=== PATIENT | male | born 1985 | race Caucasian/White ===

== ENCOUNTER → 2020-08-26 13:45 | Outpatient (BNVA) | payer OTHER, SELFPAY | PROVIDERS: PCP Internal Medicine; Referring Provider Internal Medicine; Visit Provider Internal Medicine Endocrinology, Diabetes & Metabolism | DX: E11.65 Type 2 diabetes mellitus with hyperglycemia (principal); E11.21 Type 2 diabetes mellitus with diabetic nephropathy; E78.1 Pure hyperglyceridemia; E66.9 Obesity, unspecified; E55.9 Vitamin D deficiency, unspecified | CPT/HCPCS: 82947; 99212 ==

== ENCOUNTER → 2021-03-09 08:44 | Outpatient (BNVA) | payer SELFPAY | PROVIDERS: PCP Internal Medicine; Visit Provider Physician Assistant | DX: Z02.79 Encounter for issue of other medical certificate (principal) ==

== ENCOUNTER 2021-09-12 11:54 | Emergency (ER) | payer OTHER, SELFPAY ==
--- NOTE | 2021-09-12 13:30 | ED_ITS ---
HPI - General Adult General Chief complaint: Urogenital-Male Stated complaint: pain upon urination Time Seen by Provider: 09/12/21 12:55 History of Present Illness HPI narrative: Patient with 2 complaints for several days he has had burning with urination and bumps on his genitals, he is sexually active, no fever no chills no vomiting no other complaint Related Data Home Medications Medication Instructions Recorded Confirmed blood sugar diagnostic #10 ea 08/26/20 08/26/20 lancets 28 gauge #100 ea 08/26/20 08/26/20 omega 4-rei-kjg-fish oil 1,000 mg 1 cap PO BID 08/26/20 08/26/20 (120 mg-180 mg) capsule Previous Rx's Medication Instructions Recorded blood-glucose meter (FreeStyle #1 ea 08/26/20 Lite Meter) pioglitazone 15 mg tablet 15 mg PO DAILY 30 Days #30 tab 08/25/21 cholecalciferol (vitamin D3) 25 25 mcg PO DAILY 90 Days #90 cap 09/03/21 mcg (1,000 unit) capsule fenofibrate 54 mg tablet 54 mg PO DAILY 90 Days #90 tab 09/03/21 metformin 1,000 mg tablet 1,000 mg PO BID 90 Days #180 tab 09/03/21 sulfamethoxazole 800 1 tab PO BID 5 Days #10 tab 09/12/21 mg-trimethoprim 160 mg tablet (Bactrim DS) valacyclovir 1 gram tablet 1,000 mg PO BID 10 Days #20 tab 09/12/21 (Valtrex) Allergies Allergy/AdvReac Type Severity Reaction Status Date / Time No Known Allergies Allergy Verified 09/12/21 13:35 Review of Systems Review of Systems: Positive for dysuria and genital lesions Negatives are no fever no chills no dizziness no weakness no headache no neck pain no chest pain no abdominal pain no nausea vomiting or diarrhea no testicular pain or swelling no other rash Yes all other systems are reviewed and are negative PMFSH Past Medical History Source: nursing notes reviewed Medical History (Updated 09/12/21 @ 17:56 by RAOUL Brush) Diabetes type 2, uncontrolled Diabetic nephropathy associated with type 2 diabetes mellitus Hypertriglyceridemia Obesity (BMI 30-39.9) Vitamin D deficiency Surgical History (Updated 08/26/20 @ 14:28 by BRENT Fairbanks) No pertinent past surgical history Family History Family History (Updated 08/26/20 @ 14:28 by BRENT Fairbanks) Father No problems noted. Mother No problems noted. Social History Social History (Updated 08/26/20 @ 14:27 by BRENT Fairbanks) Advance Directives: No Advance Directives Information Provided: No Physical Exam Vital Signs: Vital Signs: Last Vital Signs Temp 98 F 09/12/21 16:29 Pulse 90 09/12/21 16:29 Resp 16 09/12/21 16:29 BP 143/97 H 09/12/21 16:29 Pulse Ox 97 09/12/21 16:29 BMI result Body Mass Index 25.8 General appearance comfortable relax no acute distress Head is normocephalic atraumatic The pharynx is clear with no sores The neck is supple Respiratory no distress Abdomen soft nontender Genital exam there are vesicular lesions consistent with herpes on penis there is no testicular swelling no palpable lymph nodes no obvious discharge Extremities full range of motion x4 Skin no other rash Course Course Course Narrative: Patient's urine came back showing some white cells as well as high glucose and ketones Point of care was done and it was 255 The patient was hydrated and labs were sent there was no anion gap and acetone in the blood was negative, patient remains comfortable and tolerating p.o. t hroughout He says his sugars always around 200 despite taking his metformin so he is advised to follow with primary care doctor and copy holder for dosage adjustment and further evaluation The genital lesions that were consistent with herpes were treated with Valtrex As he is sexually active with this dysuria he was given Rocephin and Zithromax as well as tested for GC and chlamydia His urine did come back with white cells although nitrite negative and no bacteria so he was treated with Bactrim for 5 days for possible UTI , urine culture is pending Throughout ER visit he remains comfortable well-appearing and tolerating p.o. and was discharged to follow with primary doctor Medical Decision Making Lab Data Result diagrams: 09/12/21 16:24 09/12/21 16:24 Labs: Lab Results 09/12/21 09/12/21 09/12/21 Range/Units 15:22 15:23 15:51 WBC (4.8-10.8) X10*3/uL RBC (4.60-5.80) X10*6/uL Hgb (14.0-18.0) g/dl Hct (42.0-52.0) % MCV (80.0-98.0) fL MCH (27.0-33.0) pg MCHC (31.0-36.0) g/dl RDW (11.0-16.0) % Plt Count (160-400) X10*3/uL MPV (9.4-12.4) fL Immature Gran % (Auto) (0.0-0.4) % Neut % (Auto) (45-73) % Lymph % (Auto) (20-40) % [place] % (Auto) (2-11) % Eos % (Auto) (0-4) % Baso % (Auto) (0-2) % Lymph # (Auto) (1.2-4.9) X10*3/uL [place] # (Auto) (0.1-1.2) X10*3/uL Eos # (Auto) (0.0-0.4) X10*3/uL Baso # (Auto) (0.0-0.2) X10*3/uL Abs Immat Gran (auto) (0.00-0.03) X10*3/uL Absolute Neuts (auto) (2.0-8.3) x10*3/uL Absolute Nucleated RBC (0.0-0.012) X10*3/uL Nucleated RBC % (auto) (0.0-0.2) /100WBC Sodium (135-145) mmol/L Potassium (3.3-5.1) mmol/L Chloride (96-108) mmol/L Carbon Dioxide (22-29) mmol/L Anion Gap (12-20) BUN (9-16) mg/dL Creatinine (0.5-1.4) mg/dL Estim Creat Clear Calc Estimated GFR POC Glucose (60-115) mg/dL Random Glucose (60-115) mg/dL Calcium (8.4-10.2) mg/dL Urine Color YELLOW Urine Appearance HAZY Urine pH 6.0 (5.0-8.0) Ur Specific [place] >= 1.030 H (1.005-1.025) Urine Protein 2+ H (NEG-TRACE) MG/DL Urine Glucose (UA) >=1000 H (NEG) MG/DL Urine Ketones >=80 (NEG) MG/DL Urine Blood 1+ H (NEG) Urine Nitrite NEG (NEG) Ur Leukocyte Esterase NEG (NEG) Urine RBC 10-14 H (0) /HPF Urine WBC 30-49 H (0-4) /HPF Ur Squamous Epith Cells TRACE /LPF Urine Bacteria NONE /LPF Acetone, Qual (Negative) Chlam trachomat DNA PCR NOT DETECTED (Not Detect.) COVID-19 (CARTER) Negative (Negative) COVID-19 Clin Com See Note N.gonorrhoeae DNA (PCR) NOT DETECTED (Not Detect.) 09/12/21 09/12/21 09/12/21 Range/Units 16:06 16:24 16:24 WBC 4.4 L (4.8-10.8) X10*3/uL RBC 5.64 (4.60-5.80) X10*6/uL Hgb 16.5 (14.0-18.0) g/dl Hct 48.0 (42.0-52.0) % MCV 85.1 (80.0-98.0) fL MCH 29.3 (27.0-33.0) pg MCHC 34.4 (31.0-36.0) g/dl RDW 12.5 (11.0-16.0) % Plt Count 157 L (160-400) X10*3/uL MPV 10.6 (9.4-12.4) fL Immature Gran % (Auto) 0.9 H (0.0-0.4) % Neut % (Auto) 68.8 (45-73) % Lymph % (Auto) 17.2 L (20-40) % [place] % (Auto) 12.1 H (2-11) % Eos % (Auto) 0.5 (0-4) % Baso % (Auto) 0.5 (0-2) % Lymph # (Auto) 0.8 L (1.2-4.9) X10*3/uL [place] # (Auto) 0.5 (0.1-1.2) X10*3/uL Eos # (Auto) 0.0 (0.0-0.4) X10*3/uL Baso # (Auto) 0.0 (0.0-0.2) X10*3/uL Abs Immat Gran (auto) 0.04 H (0.00-0.03) X10*3/uL Absolute Neuts (auto) 3.0 (2.0-8.3) x10*3/uL Absolute Nucleated RBC 0.000 (0.0-0.012) X10*3/uL Nucleated RBC % (auto) 0.0 (0.0-0.2) /100WBC Sodium 133 L (135-145) mmol/L Potassium 4.0 (3.3-5.1) mmol/L Chloride 96 (96-108) mmol/L Carbon Dioxide 28 (22-29) mmol/L Anion Gap 13 (12-20) BUN 10 (9-16) mg/dL Creatinine 1.02 (0.5-1.4) mg/dL Estim Creat Clear Calc 105.3 Estimated GFR > 60 POC Glucose 255 H (60-115) mg/dL Random Glucose 258 H (60-115) mg/dL Calcium 9.5 (8.4-10.2) mg/dL Urine Color Urine Appearance Urine pH (5.0-8.0) Ur Specific [place] (1.005-1.025) Urine Protein (NEG-TRACE) MG/DL Urine Glucose (UA) (NEG) MG/DL Urine Ketones (NEG) MG/DL Urine Blood (NEG) Urine Nitrite (NEG) Ur Leukocyte Esterase (NEG) Urine RBC (0) /HPF Urine WBC (0-4) /HPF Ur Squamous Epith Cells /LPF Urine Bacteria /LPF Acetone, Qual (Negative) Chlam trachomat DNA PCR (Not Detect.) COVID-19 (CARTER) (Negative) COVID-19 Clin Com N.gonorrhoeae DNA (PCR) (Not Detect.) 09/12/21 Range/Units 16:24 WBC (4.8-10.8) X10*3/uL RBC (4.60-5.80) X10*6/uL Hgb (14.0-18.0) g/dl Hct (42.0-52.0) % MCV (80.0-98.0) fL MCH (27.0-33.0) pg MCHC (31.0-36.0) g/dl RDW (11.0-16.0) % Plt Count (160-400) X10*3/uL MPV (9.4-12.4) fL Immature Gran % (Auto) (0.0-0.4) % Neut % (Auto) (45-73) % Lymph % (Auto) (20-40) % [place] % (Auto) (2-11) % Eos % (Auto) (0-4) % Baso % (Auto) (0-2) % Lymph # (Auto) (1.2-4.9) X10*3/uL [place] # (Auto) (0.1-1.2) X10*3/uL Eos # (Auto) (0.0-0.4) X10*3/uL Baso # (Auto) (0.0-0.2) X10*3/uL Abs Immat Gran (auto) (0.00-0.03) X10*3/uL Absolute Neuts (auto) (2.0-8.3) x10*3/uL Absolute Nucleated RBC (0.0-0.012) X10*3/uL Nucleated RBC % (auto) (0.0-0.2) /100WBC Sodium (135-145) mmol/L Potassium (3.3-5.1) mmol/L Chloride (96-108) mmol/L Carbon Dioxide (22-29) mmol/L Anion Gap (12-20) BUN (9-16) mg/dL Creatinine (0.5-1.4) mg/dL Estim Creat Clear Calc Estimated GFR POC Glucose (60-115) mg/dL Random Glucose (60-115) mg/dL Calcium (8.4-10.2) mg/dL Urine Color Urine Appearance Urine pH (5.0-8.0) Ur Specific [place] (1.005-1.025) Urine Protein (NEG-TRACE) MG/DL Urine Glucose (UA) (NEG) MG/DL Urine Ketones (NEG) MG/DL Urine Blood (NEG) Urine Nitrite (NEG) Ur Leukocyte Esterase (NEG) Urine RBC (0) /HPF Urine WBC (0-4) /HPF Ur Squamous Epith Cells /LPF Urine Bacteria /LPF Acetone, Qual Negative (Negative) Chlam trachomat DNA PCR (Not Detect.) COVID-19 (CARTER) (Negative) COVID-19 Clin Com N.gonorrhoeae DNA (PCR) (Not Detect.) Discharge Plan Discharge Clinical Impression: Hyperglycemia, Genital herpes, UTI (urinary tract infection) Patient Disposition: Home, Self-Care Additional Instructions: Your sugar was elevated so follow with your doctor to make sure your medicines are adjusted as best possible to control your sugar Our testing showed a possible urinary tract infection so we are treating with Bactrim antibiotic We are testing for possible sexually transmitted disease which can also cause d iscomfort with urination For the genital sores we are treating with Valtrex for possible genital herpes We also treated with Rocephin and Zithromax for possible gonorrhea or chlamydia We will call you with results of testing Follow with your doctor Return any time any worse condition or any concerns Prescriptions: New sulfamethoxazole-trimethoprim [Bactrim DS] 800-160 mg tablet 1 tab PO BID 5 Days Qty: 10 RF: 0 valacyclovir [Valtrex] 1 gram tablet 1,000 mg PO BID 10 Days Qty: 20 RF: 0 No Action pioglitazone 15 mg tablet 15 mg PO DAILY 30 Days Qty: 30 RF: 6 cholecalciferol (vitamin D3) 25 mcg (1,000 unit) capsule 25 mcg PO DAILY 90 Days Qty: 90 RF: 1 fenofibrate 54 mg tablet 54 mg PO DAILY 90 Days Qty: 90 RF: 0 metformin 1,000 mg tablet 1,000 mg PO BID 90 Days Qty: 180 RF: 0 omega 8-yqq-lpt-fish oil 1,000 mg (120 mg-180 mg) capsule 1 cap PO BID RF: 0 (DME) lancets 28 gauge misc See Rx Instructions ea topical DAILY Qty: 100 RF: 0 (DME) FreeStyle Lite Strips Strip See Rx Instructions ea Not Applicable DAILY Qty: 10 RF: 0 (DME) blood-glucose meter [FreeStyle Lite Meter] Kit See Rx Instructions .ROUTE .MEDSUPPLY Qty: 1 RF: 0 Stand Alone Forms: Work/School Release
[2021-09-12 14:56] VITALS: BP 134/74; PULSE 88; RESP 16; TEMP 36.6; O2SAT 97; BMI 25.8
[2021-09-12] MEDS: Azithromycin 500 MG TABLET 1000 MG PO (15:09)
[2021-09-12] MEDS: cefTRIAXone sodium 250 MG, Lidocaine HCl 1 % MPF 0.9 ML IM (15:10)
[2021-09-12 15:37] LABS: Appearance Urine HAZY; Color Urine YELLOW; Glucose Urine UA >=1000 MG/DL (NEG); Leukocyte Esterase Urine NEG (NEG); Nitrite Urine NEG (NEG); Specific Gravity - Urine >= 1.030 (1.005-1.025); UACC Culture Trigger NO; Urine Blood 1+ (NEG); Urine Ketones >=80 MG/DL (NEG); Urine Protein 2+ MG/DL (NEG-TRACE)
[2021-09-12 15:58] LABS: Squamous Epithelial Cell Urine TRACE /LPF; UACC CULT YES; WBC Urine 30-49 /HPF (0-4)
[2021-09-12 16:11] LABS: Glucose, Whole Blood 255 mg/dL (60-115)
[2021-09-12 16:12] LABS: COVID-19 Test Negative (Negative)
[2021-09-12] MEDS: 0.9 % Sodium Chloride 1,000 ML 999 ML IVCONT (16:28)
[2021-09-12 16:29] VITALS: BP 143/97; PULSE 90; RESP 16; TEMP 36.6; O2SAT 97
--- NOTE | 2021-09-12 16:30 | PC.NURSE ---
Pt resting upright in bed, rr even unlabored, skin wpd, aox3. Pt offers no acute complaints, presents to ed for c/o dysuria w/ lesions on genitals. Pt medicated per emar for complaints. Pt known diabetic, sts he has been eating poorly over the holidays, poc 255, iv established, labs drawn, ns infusing per emar. Pt aware and agreeable to plan of care.
[2021-09-12 16:33] LABS: MANUAL DIFF FLAG NO
[2021-09-12 16:35] LABS: Basophils Percent Auto 0.5 % (0-2); Eosinophils Percent Auto 0.5 % (0-4); Hemoglobin 16.5 g/dl (14.0-18.0); Imm Gran Abs Auto 0.04 X10*3/uL (0.00-0.03); Imm Gran Pct Auto 0.9 % (0.0-0.4); Lymphocytes Absolute Auto 0.8 X10*3/uL (1.2-4.9); Lymphocytes Percent Auto 17.2 % (20-40); Mean Corpuscular HGB Conc 34.4 g/dl (31.0-36.0); Mean Corpuscular Hemoglobin 29.3 pg (27.0-33.0); Mean Corpuscular Volume 85.1 fL (80.0-98.0); Mean Platelet Volume 10.6 fL (9.4-12.4); Monocytes Absolute Auto 0.5 X10*3/uL (0.1-1.2); Monocytes Percent Auto 12.1 % (2-11); Neutrophils Percent Auto 68.8 % (45-73); Platelet Count 157 X10*3/uL (160-400); Red Blood Count 5.64 X10*6/uL (4.60-5.80); Red Cell Distribution Width 12.5 % (11.0-16.0); White Blood Count 4.4 X10*3/uL (4.8-10.8)
[2021-09-12 16:44] LABS: Acetone, serum QL Negative (Negative)
[2021-09-12 16:48] LABS: Anion Gap 13 (12-20); Blood Urea Nitrogen 10 mg/dL (9-16); Calcium 9.5 mg/dL (8.4-10.2); Carbon Dioxide 28 mmol/L (22-29); Chloride 96 mmol/L (96-108); Creatinine Clr Calc Pharmacy 105.3; Estimated Glomerular Filt Rate > 60; Glucose Random 258 mg/dL (60-115); Sodium 133 mmol/L (135-145)
[2021-09-12 18:07] LABS: CT PCR NOT DETECTED (Not Detect.); NG PCR NOT DETECTED (Not Detect.)
== END 2021-09-12 18:11 | disposition home or self-care (01) ==
PROVIDERS: Physician Assistant Medical; Emergency Provider Emergency Medicine; PCP Internal Medicine
DX: N39.0 Urinary tract infection, site not specified (principal); A60.00 Herpesviral infection of urogenital system, unspecified; E11.65 Type 2 diabetes mellitus with hyperglycemia; R30.0 Dysuria; Z20.822 Contact with and (suspected) exposure to COVID-19; Z79.899 Other long term (current) drug therapy
CPT/HCPCS: 36415; 80048; 81001; 82009; 82947; 85025; 87086; 87255; 87491; 87591; 87635; 96360; 96372; 99283; 99284; J0696

== ENCOUNTER 2022-05-14 08:13 | Outpatient (REF) | payer OTHER, SELFPAY ==
[2022-05-14 08:37] LABS: MANUAL DIFF FLAG NO
[2022-05-14 08:42] LABS: Basophils Percent Auto 0.5 % (0-2); Eosinophils Absolute Auto 0.1 X10*3/uL (0.0-0.4); Eosinophils Percent Auto 2.1 % (0-4); Hematocrit 47.9 % (42.0-52.0); Hemoglobin 16.5 g/dl (14.0-18.0); Imm Gran Abs Auto 0.04 X10*3/uL (0.00-0.03); Imm Gran Pct Auto 0.9 % (0.0-0.4); Lymphocytes Absolute Auto 1.3 X10*3/uL (1.2-4.9); Lymphocytes Percent Auto 30.4 % (20-40); Mean Corpuscular HGB Conc 34.4 g/dl (31.0-36.0); Mean Corpuscular Hemoglobin 29.6 pg (27.0-33.0); Mean Platelet Volume 10.1 fL (9.4-12.4); Monocytes Absolute Auto 0.3 X10*3/uL (0.1-1.2); Monocytes Percent Auto 7.5 % (2-11); Neutrophils Absolute Auto 2.5 x10*3/uL (2.0-8.3); Neutrophils Percent Auto 58.6 % (45-73); Platelet Count 188 X10*3/uL (160-400); Red Blood Count 5.57 X10*6/uL (4.60-5.80); Red Cell Distribution Width 12.8 % (11.0-16.0); White Blood Count 4.3 X10*3/uL (4.8-10.8)
[2022-05-14 09:10] LABS: Alanine Aminotransferase 52 U/L (0-40); Albumin Level 4.7 g/dL (3.5-5.0); Alkaline Phosphatase 61 U/L (39-117); Anion Gap 14 (12-20); Aspartate Amino Transferase 34 U/L (5-37); Bilirubin Total 0.5 mg/dL (0.0-1.0); Blood Urea Nitrogen 9 mg/dL (9-16); Calcium 9.4 mg/dL (8.4-10.2); Carbon Dioxide 27 mmol/L (22-29); Chloride 102 mmol/L (96-108); Cholesterol 191 mg/dL; Estimated Glomerular Filt Rate > 60; Glucose Fasting 144 mg/dL (60-99); HDL Cholesterol 36 mg/dL; LDL Cholesterol Calculated 81 mg/dl; Potassium 4.9 mmol/L (3.3-5.1); Sodium 138 mmol/L (135-145); Total Protein 7.6 g/dL (6.5-8.0); Triglycerides 373 mg/dL
[2022-05-14 09:25] LABS: Estimated Average Glucose 131 mg/dL; Hemoglobin A1c % 6.2 %
[2022-05-14 09:30] LABS: TSH reflex Free T4 1.86 uIU/mL (0.32-4.0)
[2022-05-14 09:46] LABS: Folate 17.9 ng/mL (> or = 4.0); Vitamin B12 316 pg/mL (200-900)
[2022-05-14 09:59] LABS: Creatinine Urine 179.96 mg/dL
[2022-05-19 14:25] LABS: Vitamin D 25-OH, D2 <4 ng/mL; Vitamin D 25-OH, D3 27 ng/mL; Vitamin D 25-OH, Total 27 ng/mL (30-100)
== END 2022-05-14 08:14 | disposition home or self-care (01) ==
LOC: HO.LAB 08:13
PROVIDERS: Absent Provider Internal Medicine Endocrinology, Diabetes & Metabolism; PCP Internal Medicine; Visit Provider Nurse Practitioner Acute Care
DX: E11.65 Type 2 diabetes mellitus with hyperglycemia (principal)
CPT/HCPCS: 36415; 80053; 80061; 82043; 82306; 82607; 82746; 82947; 83036; 84443; 85025; 99212

== ENCOUNTER 2023-02-28 11:22 | Outpatient (REF) | payer OTHER, SELFPAY ==
[2023-02-28 11:42] LABS: MANUAL DIFF FLAG NO
[2023-02-28 11:49] LABS: Basophils Absolute Auto 0.1 X10*3/uL (0.0-0.2); Basophils Percent Auto 1.2 % (0-2); Eosinophils Absolute Auto 0.1 X10*3/uL (0.0-0.4); Eosinophils Percent Auto 1.2 % (0-4); Hematocrit 48.4 % (42.0-52.0); Hemoglobin 16.9 g/dl (14.0-18.0); Imm Gran Abs Auto 0.02 X10*3/uL (0.00-0.03); Imm Gran Pct Auto 0.5 % (0.0-0.4); Lymphocytes Absolute Auto 0.9 X10*3/uL (1.2-4.9); Lymphocytes Percent Auto 21.8 % (20-40); Mean Corpuscular HGB Conc 34.9 g/dl (31.0-36.0); Mean Corpuscular Hemoglobin 29.3 pg (27.0-33.0); Mean Corpuscular Volume 83.9 fL (80.0-98.0); Mean Platelet Volume 10.4 fL (9.4-12.4); Monocytes Absolute Auto 0.3 X10*3/uL (0.1-1.2); Monocytes Percent Auto 6.5 % (2-11); Neutrophils Percent Auto 68.8 % (45-73); Platelet Count 183 X10*3/uL (160-400); Red Blood Count 5.77 X10*6/uL (4.60-5.80); Red Cell Distribution Width 12.7 % (11.0-16.0); White Blood Count 4.3 X10*3/uL (4.8-10.8)
[2023-02-28 12:00] LABS: Estimated Average Glucose 295 mg/dL; Hemoglobin A1c % 11.9 %
[2023-02-28 12:48] LABS: Alanine Aminotransferase 31 U/L (0-40); Albumin Level 4.5 g/dL (3.5-5.0); Alkaline Phosphatase 82 U/L (39-117); Anion Gap 16 (12-20); Aspartate Amino Transferase 18 U/L (5-37); Bilirubin Total 0.6 mg/dL (0.0-1.0); Blood Urea Nitrogen 10 mg/dL (9-16); Calcium 9.6 mg/dL (8.4-10.2); Carbon Dioxide 25 mmol/L (22-29); Chloride 99 mmol/L (96-108); Cholesterol 296 mg/dL; Estimated Glomerular Filt Rate > 60; Glucose Fasting 269 mg/dL (60-99); HDL Cholesterol 30 mg/dL; Potassium 4.1 mmol/L (3.3-5.1); Sodium 136 mmol/L (135-145); Total Protein 7.8 g/dL (6.5-8.0); Triglycerides 962 mg/dL
[2023-02-28 13:03] LABS: TSH reflex Free T4 2.51 uIU/mL (0.32-4.0); Vitamin D 25-OH Total 19.8 ng/mL (>30)
== END 2023-02-28 11:23 | disposition home or self-care (01) ==
LOC: HO.LAB 11:22
PROVIDERS: PCP Nurse Practitioner Family; Visit Provider Nurse Practitioner Family
DX: Z13.29 Encounter for screening for other suspected endocrine disorder (principal); Z13.0 Encounter for screening for diseases of the blood and blood-forming organs and certain disorders involving the immune mechanism; E11.65 Type 2 diabetes mellitus with hyperglycemia; E78.1 Pure hyperglyceridemia; E55.9 Vitamin D deficiency, unspecified
CPT/HCPCS: 36415; 80053; 80061; 82306; 83036; 84443; 85025

== ENCOUNTER 2023-03-08 12:25 | Outpatient (REF) | payer OTHER, SELFPAY ==
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
== END 2023-03-08 12:26 | disposition home or self-care (01) ==
LOC: HO.XRAY 12:25
PROVIDERS: PCP Internal Medicine; Visit Provider Nurse Practitioner Family
DX: S22.39XA Fracture of one rib, unspecified side, initial encounter for closed fracture (principal); X58.XXXA Exposure to other specified factors, initial encounter; Y93.9 Activity, unspecified; Y92.9 Unspecified place or not applicable; Y99.9 Unspecified external cause status
CPT/HCPCS: 71046

== ENCOUNTER 2023-03-31 10:22 | Outpatient (REF) | payer OTHER, SELFPAY ==
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
== END 2023-03-31 10:23 | disposition home or self-care (01) ==
LOC: HO.XRAY 10:22
PROVIDERS: PCP Internal Medicine; Visit Provider Physician Assistant
DX: S22.32XA Fracture of one rib, left side, initial encounter for closed fracture (principal)
CPT/HCPCS: 71101

== ENCOUNTER 2023-03-31 10:46 | Outpatient (AMB) | payer OTHER, SELFPAY ==
[2023-03-31 10:48] VITALS: BP 130/86; PULSE 102; O2SAT 99; BMI 27.1
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
== END 2023-03-31 12:12 | disposition home or self-care (01) ==
PROVIDERS: PCP Internal Medicine; Visit Provider Physician Assistant
DX: S22.32XA Fracture of one rib, left side, initial encounter for closed fracture (principal); M54.50 Low back pain, unspecified; M54.2 Cervicalgia
CPT/HCPCS: 99213

== ENCOUNTER 2023-04-25 14:38 | Outpatient (AMB) | payer OTHER, SELFPAY ==
[2023-04-25 14:42] VITALS: BP 140/92; PULSE 85; O2SAT 99; BMI 27.9
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
== END 2023-04-25 15:09 | disposition home or self-care (01) ==
PROVIDERS: PCP Internal Medicine; Visit Provider Internal Medicine
DX: M54.2 Cervicalgia (principal); M54.50 Low back pain, unspecified; E11.65 Type 2 diabetes mellitus with hyperglycemia; E78.1 Pure hyperglyceridemia
CPT/HCPCS: 99214

== ENCOUNTER 2023-05-05 10:11 | Outpatient (REF) | payer OTHER, SELFPAY ==
--- NOTE | ~2023-05-05 | XR_ITS ---
EXAMINATION: XR LUMBOSACRAL SPINE CLINICAL INFORMATION: Lower back pain. COMPARISON: None available. TECHNIQUE: AP and lateral views of the lumbar spine and lateral view of the lumbosacral junction. FINDINGS: Vertebral body heights are normal. There is a mild lumbar rotatory levoscoliosis. The lumbar disc spaces are well-maintained. No acute fracture or spondylolisthesis is seen. The posterior elements are intact. There is sacralization of the L5 left transverse process. The paravertebral soft tissues are unremarkable. XR/XR lumbar spine 2-3V IMPRESSION: 1. No acute fracture or spondylolisthesis is seen. 2. The lumbar disc spaces are well-maintained. 3. There is a mild lumbar rotatory levoscoliosis. 4. There is sacralization of the L5 left transverse process.
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
== END 2023-05-05 10:12 | disposition home or self-care (01) ==
LOC: HO.XRAY 10:11
PROVIDERS: PCP Internal Medicine; Visit Provider Physician Assistant
DX: M54.50 Low back pain, unspecified (principal); S22.32XA Fracture of one rib, left side, initial encounter for closed fracture; X58.XXXA Exposure to other specified factors, initial encounter; Y93.9 Activity, unspecified; Y92.9 Unspecified place or not applicable; Y99.9 Unspecified external cause status
CPT/HCPCS: 71101; 72100

== ENCOUNTER 2023-06-02 13:54 | Outpatient (AMB) | payer OTHER, SELFPAY ==
[2023-06-02 13:56] VITALS: BP 132/82; PULSE 92; O2SAT 99; BMI 28.6
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
== END 2023-06-02 14:33 | disposition home or self-care (01) ==
PROVIDERS: PCP Internal Medicine; Visit Provider Physician Assistant
DX: S22.32XA Fracture of one rib, left side, initial encounter for closed fracture (principal); V89.2XXA Person injured in unspecified motor-vehicle accident, traffic, initial encounter; M54.2 Cervicalgia; E11.21 Type 2 diabetes mellitus with diabetic nephropathy; Z04.3 Encounter for examination and observation following other accident
CPT/HCPCS: 83036; 99214

== ENCOUNTER 2023-06-08 09:01 | Outpatient (AMB) | payer OTHER, SELFPAY ==
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
[2023-06-08 09:18] VITALS: BP 150/96; PULSE 81; RESP 18; O2SAT 94; BMI 29.3
== END 2023-06-08 09:48 | disposition home or self-care (01) ==
PROVIDERS: PCP Internal Medicine; Visit Provider Registered Nurse Emergency
DX: M54.2 Cervicalgia (principal); M47.816 Spondylosis without myelopathy or radiculopathy, lumbar region; S46.812S Strain of other muscles, fascia and tendons at shoulder and upper arm level, left arm, sequela
CPT/HCPCS: 99204

== ENCOUNTER → 2023-06-08 09:01 | Outpatient (BNVA) | payer OTHER, SELFPAY | PROVIDERS: PCP Internal Medicine; Visit Provider Registered Nurse Emergency ==

== ENCOUNTER 2023-06-09 11:13 | Outpatient (REF) | payer OTHER, SELFPAY ==
--- NOTE | ~2023-06-09 | XR_ITS ---
EXAMINATION: XR CERVICAL SPINE CLINICAL INFORMATION: Cervicalgia COMPARISON: None available. TECHNIQUE: 6 views of the cervical spine, inclusive of flexion and extension views, were obtained. FINDINGS: The tip of the odontoid is obscured on the open-mouth view. There is no fracture. Prevertebral soft tissues are within normal limits. There is straightening of the usual cervical lordosis which can be seen with muscle spasm or be due to patient positioning. There is 2 mm retrolisthesis of C3 respect to C4 which reduces with flexion is unchanged on extension. There is no significant disc space narrowing. The neural foramina are patent. XR/XR cervical spine w flex/ext IMPRESSION: 1. Straightening of the usual cervical lordosis which can be seen with muscle spasm or be due to patient positioning. 2. 2 mm retrolisthesis of C3 respect to C4, as discussed above.
== END 2023-06-09 11:14 | disposition home or self-care (01) ==
LOC: HO.XRAY 11:13
PROVIDERS: Absent Provider Physician Assistant; PCP Internal Medicine; Visit Provider Registered Nurse Emergency
DX: M54.2 Cervicalgia (principal)
CPT/HCPCS: 72052

== ENCOUNTER 2023-06-22 08:56 | Outpatient (AMB) | payer OTHER, SELFPAY ==
[2023-06-22 09:03] VITALS: BP 140/83; PULSE 76; RESP 16; O2SAT 100; BMI 29.0
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
== END 2023-06-22 09:22 | disposition home or self-care (01) ==
PROVIDERS: PCP Internal Medicine; Visit Provider Registered Nurse Emergency
DX: M54.2 Cervicalgia (principal); M47.816 Spondylosis without myelopathy or radiculopathy, lumbar region; S46.812S Strain of other muscles, fascia and tendons at shoulder and upper arm level, left arm, sequela
CPT/HCPCS: 99213

== ENCOUNTER → 2023-06-22 08:56 | Outpatient (BNVA) | payer OTHER, SELFPAY | PROVIDERS: PCP Internal Medicine; Visit Provider Registered Nurse Emergency | DX: M54.2 Cervicalgia (principal); M47.816 Spondylosis without myelopathy or radiculopathy, lumbar region; S46.812S Strain of other muscles, fascia and tendons at shoulder and upper arm level, left arm, sequela | CPT/HCPCS: 99212 ==

== ENCOUNTER 2023-07-28 10:48 | Outpatient (AMB) | payer OTHER, SELFPAY ==
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
[2023-07-28 11:28] VITALS: BP 132/72; PULSE 95; O2SAT 98; BMI 29.6
== END 2023-07-28 12:14 | disposition home or self-care (01) ==
PROVIDERS: PCP Internal Medicine; Visit Provider Physician Assistant
DX: S22.32XA Fracture of one rib, left side, initial encounter for closed fracture (principal); V89.2XXA Person injured in unspecified motor-vehicle accident, traffic, initial encounter; M54.2 Cervicalgia
CPT/HCPCS: 99214

== ENCOUNTER 2023-07-28 15:00 | Outpatient (RCR) | payer OTHER, SELFPAY ==
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
== END 2023-07-29 15:34 | disposition home or self-care (01) ==
LOC: HO.PT 15:00
PROVIDERS: PCP Internal Medicine; Visit Provider Nurse Practitioner Family
DX: M54.50 Low back pain, unspecified (principal)
CPT/HCPCS: 97035; 97110; 97112; 97140; 97161; 97530

== ENCOUNTER 2023-08-16 06:16 | Outpatient (REF) | payer OTHER, SELFPAY ==
--- NOTE | ~2023-08-16 | FL_ITS ---
EXAMINATION: XR FLUOROSCOPY WITH IMAGES CLINICAL INFORMATION: Spondylosis without myelopathy or radiculopathy, lumbar region. COMPARISON: None available. TECHNIQUE: Fluoroscopy Supervised By: Dr. Clyde Byrne. Fluoroscopy Time: 0.4 minutes. Cumulative Dose: 5.49 mGy. DAP: 0.0954 Gycm2. Images: 6. FINDINGS: Images demonstrate needle placement and contrast injection adjacent to the bilateral lateral L3, L4 and L5 vertebrae FL/FL guidance in treatment room IMPRESSION: Fluoroscopy for pain management procedure.
== END 2023-08-16 06:17 | disposition home or self-care (01) ==
LOC: CF 06:16
PROVIDERS: Visit Provider Anesthesiology
DX: M47.816 Spondylosis without myelopathy or radiculopathy, lumbar region (principal); M54.2 Cervicalgia; S46.812S Strain of other muscles, fascia and tendons at shoulder and upper arm level, left arm, sequela
CPT/HCPCS: 64493; 64494; J2795; J3301; Q9967

== ENCOUNTER 2023-08-16 10:26 | Outpatient (AMB) | payer OTHER, SELFPAY ==
--- NOTE | 2023-08-16 10:33 | MHC.OFFVIS ---
Intake Vital Signs 08/16/23 10:34 08/16/23 10:34 Height 5 ft 11 in 5 ft 11 in Weight 212 lb 8 oz 212 lb 8 oz BMI 29.6 29.6 BP 116/90 H 126/72 Blood Pressure Location Lt brachial Lt brachial Position Sitting Sitting Respiration 18 18 Pulse 80 71 Pulse Source Pulse Oximeter Pulse Oximeter Pulse Oximetry (%) 99 100 Oxygen Delivery Method Room Air Room Air Comment pre-op post-op Intake Visit Reasons: BILAT DX L3-L4-DRL5 MBB/LOCAL Allergies No Known Allergies Allergy (Verified 08/16/23 10:35) [facility] Medical History Vitamin D deficiency Obesity (BMI 30-39.9) Hypertriglyceridemia Diabetic nephropathy associated with type 2 diabetes mellitus Diabetes type 2, uncontrolled Surgical History No pertinent past surgical history Family History Father No problems noted. Mother No problems noted. Social History Housing: House Patient Tobacco Use Status: Current everyday Tobacco user Tobacco use type: Cigarette Cigarette Packs Per Day: 10 Cigarettes Per Day: 10 Years Smoked: 12 years e-Cigarette/Vaping Use: Never Used Second Hand Smoke Exposure: Yes service: No Current occupational status: employed Cognitive needs: No Hearing needs: No Vision needs: No Physical Exam Vital Signs: Last Vital Signs Pulse 71 08/16/23 10:34 Resp 18 08/16/23 10:34 BP 126/72 08/16/23 10:34 Pulse Ox 100 08/16/23 10:34 Oxygen Delivery Method Room Air 08/16/23 10:34 BMI result Body Mass Index 29.6 Assessment & Plan Assessment & Plan (1) Cervicalgia: Code(s): M54.2 - Cervicalgia (2) Lumbar spondylosis: Code(s): M47.816 - Spondylosis without myelopathy or radiculopathy, lumbar region Plan: Diagnostic medial branch block L3,L4 dorsal ramus L5 bilateral.? ? ?Informed consent was explained to the patient. All questions were explained and? answered.? The patient was taken inside the operating room where she was positioned prone on the operating table. Time-out was performed delineating correct site, side, the nature of the procedure, patient's allergy, . All operating room staff was participating in OR time-out procedure. ? ? The lower back was prepped with ChloraPrep and draped with sterile towels.? C-arm was brought over the operating field and sq picture of L4-, L5 vertebra and S1 AREA were delineated on the screen.? Point of interest were delineated as confluence of superior articular process of L4 and L5 vertebra bilaterally with corresponding transverse processes as well as confluence of the sacral alae bilaterally with superior articular process of S1.? The projection of the point of interest to the skin were injected with the small amount of local anesthetic lidocaine 2% 1-1.5 cc.? After that 22 gauge 3.5 inch spinal needle was driven sequentially to the points of interest in tunnel vision fashion. After needles gently contacted the bone at the point of interests the needle was injected with small amount of the contrast.? The injection of the contrast did not demonstrate any intravascular or intrathecal spread of the contrast.? After that injection of the? ropivacaine 0.5%-1cc was performed at each needle location.??after that the needles were removed and Bandaids were applied. ? Upon completion of the injections? needle was? removed and sterile Band-Aids were applied.? The patient tolerated procedure very well. (3) Trapezius muscle strain: Code(s): S46.819A - Strain of other muscles, fascia and tendons at shoulder and upper arm level, unspecified arm, initial encounter Qualifiers: Encounter type: sequela Laterality: left Qualified Code(s): S46.812S - Strain of other muscles, fascia and tendons at shoulder and upper arm level, left arm, sequela Plan Layton is a very pleasant 38 year old male who presented to the office today for follow up. Patient reports improvement in symtoms with current treatment plan, NSAIDs, muscle relaxers, topical lidocaine and PT. He would like to continue with current plan. C/W: Tizanidine 2 mg p.o. b.i.d. as needed for muscle spasm. Lidocaine topical ointment, apply as needed. Meloxicam 7.5mg po daily Physical therapy as planned. Discussed options for treatment including diagnostic interventional testing, epidural steroid injections, peripheral nerve stimulation with Sprint, RFA and more permanent neuromodulation. Patient will follow up in one month to evaluate continued response to conservative treatment. If pain persists will plan for diagnostic fluoroscopy guided L3-L4 DR L5 MBBs is with local anesthetic. All questions and concerns have been answered and patient agrees with the plan. Follow up in one month, sooner if needed. Orders: Orders FL guidance in treatment room 08/16/23 M47.816 - Spondylosis without myelopathy or radiculopathy, lumbar region Coding Level of Care Code Procedure Only Diagnoses Cervicalgia M54.2 Lumbar spondylosis M47.816 Strain of left trapezius muscle, sequela S46.812S Encounter type: sequela Laterality: left
[2023-08-16 10:34] VITALS: BP 116/90; BP 126/72; PULSE 71; PULSE 80; RESP 18; O2SAT 100; O2SAT 99; BMI 29.6
== END 2023-08-16 11:10 | disposition home or self-care (01) ==
LOC: HO.PMCPRC 10:26
PROVIDERS: PCP Internal Medicine; Visit Provider Anesthesiology
DX: M47.816 Spondylosis without myelopathy or radiculopathy, lumbar region (principal)
CPT/HCPCS: 64493; 64494

== ENCOUNTER 2023-08-18 10:02 | Outpatient (AMB) | payer OTHER, SELFPAY ==
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
[2023-08-18 10:08] VITALS: BP 156/94; PULSE 88; O2SAT 99; BMI 29.6
== END 2023-08-18 10:13 | disposition home or self-care (01) ==
PROVIDERS: PCP Internal Medicine; Visit Provider Registered Nurse Emergency
DX: M54.2 Cervicalgia (principal); M47.816 Spondylosis without myelopathy or radiculopathy, lumbar region; S46.812S Strain of other muscles, fascia and tendons at shoulder and upper arm level, left arm, sequela
CPT/HCPCS: 99213

== ENCOUNTER → 2023-08-18 10:02 | Outpatient (BNVA) | payer OTHER, SELFPAY | PROVIDERS: PCP Internal Medicine; Visit Provider Registered Nurse Emergency | DX: M47.816 Spondylosis without myelopathy or radiculopathy, lumbar region (principal); M54.2 Cervicalgia; S46.812S Strain of other muscles, fascia and tendons at shoulder and upper arm level, left arm, sequela; Z98.890 Other specified postprocedural states | CPT/HCPCS: 99212 ==

== ENCOUNTER 2024-01-23 11:04 | Outpatient (AMB) | payer OTHER, SELFPAY ==
[2024-01-23 11:05] VITALS: BP 162/98; PULSE 86; O2SAT 98; BMI 30.4
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
== END 2024-01-23 11:49 | disposition home or self-care (01) ==
PROVIDERS: PCP Internal Medicine; Visit Provider Physician Assistant
DX: I10 Essential (primary) hypertension (principal); E11.65 Type 2 diabetes mellitus with hyperglycemia
CPT/HCPCS: 83036; 99213; 99214